=== PATIENT | female | born 1970 | race Caucasian/White ===

== ENCOUNTER → 2019-12-30 | Outpatient (CLI) | payer MEDICARE ==
--- NOTE | 2019-12-30 17:36 | US ---
EXAM DESCRIPTION: Breast,Bilateral: Ultrasound CLINICAL HISTORY: 49 yearsFemaleABNORMAL MAMMO . No complaints. No personal history of breast cancer. Remote family history of breast and ovarian cancer. Menarche age 13. Childbirth age 19. Menopause age 38. Previous benign right breast biopsy. Lifetime risk of developing breast cancer (Tyrer-Cuzick model)(%): 8.7. COMPARISON: Bilateral screening digital breast tomosynthesis September 29. TECHNIQUE: Transcutaneous scanning of the bilateral breast utilizing carter-scale and Doppler modes. Scanning performed by the supervisor properties ; observation by Dr. Esparza. FINDINGS: Ultrasound: Scanning of the 1:00 position of the right breast posterior third, 8 cm from the nipple. Mostly fatty echotexture with minimal fibroglandular tissues. Small 2 mm lymph node versus cyst with circumscribed margins and posterior acoustic enhancement. No dominant solid mass or fluid collection. No large calcifications. No overlying skin changes. Scanning in the left breast 11:00 to 1:00 sectors, mid third, 9 cm from the nipple. Mostly fatty echotexture with minimal fibroglandular tissues. Well-circumscribed oval shaped object with posterior echogenicity. Wider than tall orientation. Mixed posterior acoustic enhancement. Nonvascular. Most likely a lymph node. No dominant solid mass or distinct cyst. No fluid collection or large calcifications. No overlying skin changes. IMPRESSION: Benign exam. BIRAD CATEGORY: 2 BENIGN FINDINGS. RECOMMENDATIONS: FOLLOW UP: Return to routine digital bilateral mammographic screening, one year interval from September 2019. Written communication explaining the IMPRESSION and follow-up, will be mailed to the patient and referring health care provider. According to the [employer], yearly mammograms are recommended starting at age 40 and continuing as long as a woman is in good health. Any breast change noted on a breast self-exam should be reported promptly to the patient's healthcare provider. Breast MRI is recommended for women with an approximately 20-25% or greater lifetime risk of breast cancer, including women with a strong family history of breast or ovarian cancer and women who have been treated for Hodgkin's disease. A negative mammographic report should not delay tissue diagnosis in patients with significant clinical history or physical findings. Extremely dense breast tissue limits the sensitivity of digital mammography. Electronically signed by: Valdemar Esparza MD 12/30/2019 5:35 PM CDT
== END ==
LOC: MAMMO 10:57
PROVIDERS: ATTEND Family Medicine
DX: R92.8 Other abnormal and inconclusive findings on diagnostic imaging of breast (principal)